=== PATIENT | male | born 1970 | race Caucasian/White ===

== ENCOUNTER 2017-01-25 11:30 | Inpatient (IN) | payer MEDICARE, MEDICAID ==
[~2017-01-25 11:30] MED LIST: AMLODIPINE BESYL5 MG PO; ASTELIN NASAL S30 ML NS; CIPRO DPS500 MG PO; FLONASE 0.05% D16 GM NS; FLOVENT 44MCG10.6 GM NS; HYDROCODONE 5MG/5 MG PO; IMODIUM DPS2 MG PO; LOTENSIN DPS20 MG PO; MAALOX DPS30 ML PO; MACROBID100 MG PO; MILK OF MAGNESI10 ML PO; MYCOSTATIN PWD15 GM TP; NITROFURANTOIN100 MG PO; NORMAL SALINE FL5 ML IV; PROTONIX40 MG PO; ROBITUSSIN DM D30 ML PO; SENOKOT DPS8.6 MG PO; SUDAFED DPS30 MG PO; SURFAK DPS240 MG PO; TENORMIN-DPS25 MG PO; TYLENOL DPS325 MG PO; XANAX DPS0.25 MG PO; ZYRTEC DPS10 MG PO; [UNRECOGNIZED DRUG - OTHER] IV
[2017-02-02] MEDS ORDERED: NAPROSYN DPS500 MG PO (06:39)
[2017-02-02] MEDS ORDERED: LASIX DPS40 MG PO (06:39)
[2017-02-02] MEDS ORDERED: NORVASC5 MG PO (06:40)
[2017-02-02] MEDS ORDERED: SPIRONOLACT50 MG PO (06:41)
[2017-02-02] MEDS ORDERED: THERAPEUTIC MUL1 TAB PO (06:41)
[2017-02-02] MEDS ORDERED: ATROVENT NASAL15 ML NS (06:42)
[2017-02-02] MEDS ORDERED: MENTHOL TP (06:44)
[2017-02-02] MEDS ORDERED: SENNA-DOCUSATE1 EACH PO (06:50)
[2017-02-02] MEDS ORDERED: MIRALAX17 GM PO (06:51)
[2017-02-02] MEDS ORDERED: INVANZ1 GM IM (06:52)
[2017-02-02] MEDS ORDERED: AFRIN-DPS15 ML NS (06:52)
== END 2017-01-31 15:07 | DRG 698 ==
DX: T83.511A Infection and inflammatory reaction due to indwelling urethral catheter, initial encounter (principal); A41.52 Sepsis due to Pseudomonas; L89.322 Pressure ulcer of left buttock, stage 2; I95.9 Hypotension, unspecified; N31.9 Neuromuscular dysfunction of bladder, unspecified; N39.0 Urinary tract infection, site not specified; G47.33 Obstructive sleep apnea (adult) (pediatric); I10 Essential (primary) hypertension; Q05.9 Spina bifida, unspecified; J32.9 Chronic sinusitis, unspecified; F41.9 Anxiety disorder, unspecified; J30.9 Allergic rhinitis, unspecified; Z22.322 Carrier or suspected carrier of Methicillin resistant Staphylococcus aureus; Z98.2 Presence of cerebrospinal fluid drainage device

== ENCOUNTER → 2017-02-23 | Outpatient (CLI) | payer MEDICARE, MEDICAID ==
[~2017-02-23] MED LIST changes: +AFRIN-DPS15 ML NS; +ATROVENT NASAL15 ML NS; +INVANZ1 GM IM; +LASIX DPS40 MG PO; +MENTHOL TP; +MIRALAX17 GM PO; +NAPROSYN DPS500 MG PO; +NORVASC5 MG PO; +SENNA-DOCUSATE1 EACH PO; +SPIRONOLACT50 MG PO; +THERAPEUTIC MUL1 TAB PO
== END | disposition home or self-care (01) ==
LOC: THER.SSS 13:03
DX: N31.9 Neuromuscular dysfunction of bladder, unspecified (principal); Q05.9 Spina bifida, unspecified